=== PATIENT | male | born 1955 | race Caucasian/White ===

== ENCOUNTER 2019-07-28 23:07 | Emergency (ER) | payer BC ==
[2019-07-29] MEDS ORDERED: Ketorolac INJ* 30 MG/ML 1 ML VIAL IM ONE (00:33)
--- NOTE | 2019-07-29 00:39 | ED ---
Lower Extremity - HPI Summary HPI Summary: 63 year old male presents to the ED with a chief complaint of R LE pain secondary to twisting his leg while playing ice hockey at 2230 tonight. The pain radiates down his tibia to his foot. He is able to move his toes and reports full sensation in his foot. History of arthritis. Patient does not smoke tobacco. He occasionally drinks alcohol. patient denies any other pain or injury. Denies loss of consciousness. Has no visual changes nausea vomiting. - History of Current Complaint Chief Complaint: EDExtremityLower Stated Complaint: R ANKLE INJURY PER EMS Time Seen by Provider: 07/28/19 23:42 Hx Obtained From: Patient Mechanism Of Injury: Twisted Onset of Pain: Immediate Onset/Duration: Minutes Severity Initially: Moderate Severity Currently: Moderate Pain Intensity: 4 Pain Scale Used: 0-10 Numeric Timing: Constant Location: Is Discrete @ - LLE Character Of Pain: Sharp Associated Signs And Symptoms: Positive: Swelling, Redness Able to Bear Weight: No - Allergies/Home Medications Allergies/Adverse Reactions: Allergies Allergy/AdvReac Type Severity Reaction Status Date / Time doxycycline Allergy Hives Verified 07/16/18 14:25 PMH/Surg Hx/FS Hx/Imm Hx Endocrine/Hematology History: Denies: Hx Diabetes, Hx Sickle Cell Disease Cardiovascular History: Reports: Hx Hypertension - PRE HYPERTENSION Denies: Hx Pacemaker/ICD, Other Cardiovascular Problems/Disorders Respiratory History: Denies: Hx Asthma GI History: Denies: Other GI Disorders History: Reports: Hx Kidney Stones - IN THE PAST Denies: Hx Renal Disease, Other Problems/Disorders Musculoskeletal History: Reports: Hx Arthritis - LEFT KNEE DUE TO INJURY Sensory History: Reports: Hx Contacts or Glasses - GLASSES Denies: Hx Hearing Aid Opthamlomology History: Reports: Hx Contacts or Glasses - GLASSES Neurological History: Denies: Other Neuro Impairments/Disorders Psychiatric History: Denies: Hx Panic Disorder - Cancer History Hx Chemotherapy: No - Surgical History Surgery Procedure, Year, and Place: ARTHROSCOPY LEFT KNEE - 1995 [facility] – [place]. TONSILS - CHILD. cyst on finger - benign. wisdom teeth Hx Anesthesia Reactions: No Infectious Disease History: No Infectious Disease History: Denies: Hx Clostridium Difficile, Hx Hepatitis, Hx Human Immunodeficiency Virus (HIV), Hx of Known/Suspected MRSA, Hx Shingles, Hx Tuberculosis, Hx Known/ Suspected VRE, Hx Known/Suspected VRSA, History Other Infectious Disease, Traveled Outside the [place] in Last 30 Days - Social History Alcohol Use: Occasionally Alcohol Amount: twice weekly Substance Use Type: Reports: None Smoking Status (MU): Never Smoked Tobacco - Additional Comments History Additional Comments: PMHx: Arthritis Review of Systems - ROS Summary Review of Systems Summary: Home Medications Medication Instructions Recorded Confirmed Type Aspirin [Aspir-81] 81 mg PO DAILY 03/10/13 07/16/18 History Chlorpheniramine Maleate TAB* 12 mg PO DAILY 03/10/13 07/16/18 History [Chlortrimeton TAB*] Losartan Potassium [Cozaar] 50 mg PO DAILY 07/16/18 07/16/18 History Naproxen Sodium [Naproxen 220 mg] 220 mg PO DAILY 07/16/18 07/16/18 History Negative: Fever Positive: Arthralgia - Right ankle pain, Myalgia - LRE All Other Systems Reviewed And Are Negative: Yes Physical Exam - Summary Physical Exam Summary: General: Well-developed, Well-nourished male. No acute distress. HEENT: Normocephalic, Atraumatic. Eyes: Conjuctiva normal, PERRL. Ears: TMs within normal limits. Nares: (-) discharge, (-) erythema. Oropharynx: Clear, mucous membranes moist, (-) exudates. Neck: Soft, FROM, (-) lymphadenopathy, (-) thyromegaly, (-) JVD. Cardiovascular: Normal sinus rhythm, (-) murmur. Lungs: Clear to auscultation bilaterally (-) wheezes, (-) rales, (-) rhonchi. Abdomen: Soft, non-tender, non-distended, (-) organomegaly, normal bowel sounds. Back: (-) CVA tenderness Extremities: Mild swelling and erythema in distal LRE, proximal to ankle. Mild to moderate tenderness in the area. Normal capillary refill, pulses, ROM, strength, and sensation. Skin: Warm, dry, (-) rash. Neuro: Alert and oriented x3, no focal deficits. Psychiatric: Mood normal, affect normal. Triage Information Reviewed: Yes Vital Signs On Initial Exam: Initial Vitals Temp Pulse Resp BP Pulse Ox 97.8 F 84 18 155/84 96 07/28/19 23:10 07/28/19 23:10 07/28/19 23:10 07/28/19 23:10 07/28/19 23:10 Vital Signs Reviewed: Yes Procedures - Sedation Patient Received Moderate/Deep Sedation with Procedure: No - Splinting Right Lower Extremity Location: Right Tibia Hand-Made Type: orthoglass Splint: Posterior Splint Pre-Proc Neuro Vasc Exam: normal Post-Proc Neuro Vasc Exam: normal Splint Applied by Provider: Reina Mendez - Vital Signs Vital Signs Temp Pulse Resp BP Pulse Ox 07/28/19 23:10 97.8 F 84 18 155/84 96 - Laboratory Lab Statement: Any lab studies that have been ordered have been reviewed, and results considered in the medical decision making process. - Radiology Ankle XR Radiology Interpretation Completed By: ED Physician Summary of Radiographic Findings: Ankle XR shows oblique fracture of the right tibia distally with mild displacement. Pending official read. Dr. Mendez reviewed and interpreted this scan. Tibia Fibula XR Radiology Interpretation Completed By: ED Physician Summary of Radiographic Findings: Tibia Fibular XR shows additional proximal fracture on right fibula, oblique, and distal tibia fracture with mild displacement. Dr. Mendez has reviewed and interpreted this report. Lower Extremity Course/Dx - Course Course Of Treatment: 63-year-old male presents by ambulance after injury while playing ice hockey. Patient states he had his foot planted and turned while someone hit him against the boards. He has pain distally in right lower extremity. Also complains of pain in the proximal right lower extremity. He has swelling, ecchymosis, tenderness upon arrival. No significant deformity. X -rays demonstrate normal pulses and capillary refill distally. X-rays demonstrate a proximal fibular fracture as well as lower tibial fracture on the right. Consulted with orthopedic surgeon on-call, Dr. Fleming. Discussed findings. Recommended splint and crutches. Nonweightbearing. Follow up in the morning by calling orthopedics for an appointment. Patient will be seen and definitive treatment be arranged. Patient is in agreement with this plan. Splint is applied. Patient given crutches and teaching. Discharged to home. Advised to rest, ice, elevation. Tylenol or ibuprofen for pain. Follow-up sooner for any worsening symptoms. - Diagnoses Provider Diagnoses: Right tibial fracture, Right fibular fracture Discharge ED - Sign-Out/Discharge Documenting (check all that apply): Patient Departure - discharge home - Discharge Plan Condition: Stable Disposition: HOME Patient Education Materials: Leg Fracture (ED) Referrals: Josh Fleming MD [Medical Doctor] - Additional Instructions: Follow up with Orthopedics tomorrow morning. Return to the Emergency Department if you experience new or worsened symptoms. Feel better! - Billing Disposition and Condition Condition: STABLE Disposition: Home - Attestation Statements Document Initiated by Scribe: Yes Documenting Scribe: Rodolfo Farmer Provider For Whom Celeibtye is Documenting (Include Credential): Reina Mendez MD Scribe Attestation: Rodolfo Lilly, scribed for Reina Mendez MD on 07/29/19 at 0605. Scribe Documentation Reviewed: Yes Provider Attestation: The documentation as recorded by the Rodolfo montero accurately reflects the service I personally performed and the decisions made by , Reina Mendez MD Status of Scribe Document: Viewed
[2019-07-29 02:29] VITALS: BP 138/76
== END 2019-07-29 02:05 | disposition home or self-care (01) ==
LOC: ED 23:07
DX: S82.201A Unspecified fracture of shaft of right tibia, initial encounter for closed fracture (principal); R60.9 Edema, unspecified; I10 Essential (primary) hypertension; Z87.442 Personal history of urinary calculi; Z79.82 Long term (current) use of aspirin; X58.XXXA Exposure to other specified factors, initial encounter; Y93.22 Activity, ice hockey; Y92.9 Unspecified place or not applicable
CPT/HCPCS: 96372; 99283; J1885

== ENCOUNTER → 2019-07-31 10:22 | Day surgery (SDC) | payer BC ==
[~2019-07-31 10:22] MED LIST: Atracurium* 10 MG/ML 10 ML VIAL ONE; Buffered Lidocaine 1% SYRIN* 1 ML/SYRINGE INTRADERM ONE; Bupivacaine 0.25% EPI 200,000* 30 ML SDV ONE; Dexamethasone IV* 4 MG/ML 1 ML (4 MG) IV SLOW PU ONE; Dexamethasone IV* 4 MG/ML 1 ML (4 MG) ONE; DiMENhydriNATE IV* 50 MG/ML VIAL IV PUSH PRN; Famotidine IV* 10 MG/ML 2 ML (20 mg) IV ONE; Famotidine IV* 10 MG/ML 2 ML (20 mg) ONE; HYDROmorphone INJ1* 1 MG/ML SYRINGE IV PRN; Ketorolac INJ* 30 MG/ML 1 ML VIAL ONE; Lactated Ringers 1000 ML Bag* 1,000 ML IV SCH; Levalbuterol HFA INHALER* 1 PUFF MDI ONE; Lidocaine 2% PF * 5 ML VIAL ONE; Midazolam* 1 MG/ML 5 ML VIAL (5 MG) ONE; Naloxone* 0.4 MG/ML 1 ML VIAL IV PRN; Ondansetron INJ* 2 MG/ML VIAL IV PRN; Ondansetron INJ* 2 MG/ML VIAL ONE; Propofol* 10 MG/ML 20 ML BTL ONE; ROPIVACAINE 5 MG/ML 30 ML BTL (0.5%) ONE; Scopolamine 1.5 mg* PATCH TRANSDERM PRN; ceFAZolin 2 GM PREMIX in ORs 2 GM/50 ML BAG ONE; fentaNYL* 50 MCG/ML 2 ML VIAL (100 MCG VIAL) IV PRN; fentaNYL* 50 MCG/ML 5 ML VIAL (250 MCG VIAL) ONE; oxyCODONE/Acetamin 5/325 MG* TAB PO PRN
[2019-07-31 17:47] VITALS: BP 140/85
--- NOTE | 2019-08-02 02:48 | OP ---
OPERATIVE REPORT: DATE OF OPERATION: 07/31/19 DATE OF : 55 SURGEON: Dr. Adalberto Ho. SHOP CLERK: SELENE Brantley A physician city carrier assistant was required for the length of the procedure for assistance with patient positi oning, retraction, instrumentation, and closure. ANESTHESIOLOGIST: Dr. Mccain. ANESTHESIA: General anesthesia, regional anesthesia consisting of popliteal block and adductor canal blocks. PRE-OP DIAGNOSES: 1. Right tibial shaft fracture, displaced, distal, comminuted. 2. Right proximal fibula shaft fracture, displaced. POST-OP DIAGNOSES: 1. Right tibial shaft fracture, displaced, distal, comminuted. 2. Right proximal fibula shaft fracture, displaced. OPERATIVE PROCEDURE: 1. Open reduction and internal fixation right tibial shaft fracture with intramedullary nail. 2. Close treatment right proximal fibula fracture, proximal shaft. ANTIBIOTICS: Ancef 2 g IV. IV FLUIDS: See Anesthesia note. [id number] TIME: 119 minutes. TOURNIQUET TIME: 40 minutes at 300 mmHg, right thigh. Tourniquet was dropped prior to flexible ream ing of the medullary canal. SPECIMEN: None. IMPLANTS: Cardback right T2 tibial nail. Nail was 9 mm x 315 mm. Four screws were placed, each 5 mm wide. The screw proximal was 40 mm. Three screws were placed distally, two of them were 40 mm long and one of them was 47.5 mm long. A plus 15- mm end cap was placed proximally. ESTIMATED BLOOD LOSS: Minimal. COMPLICATIONS: None. INDICATIONS FOR PROCEDURE: The patient is a 63-year-old man, retired, who injured himself 07/28/19 a nd was seen by me in clinic on 07/29/19. X-rays displayed clear right tibial and fibular sha ft fractures with significant displacement requiring surgery. Discussed risks and potential complications of surgery with the patient and he agreed to go forward w [facility] surgery. I had him elevate his right lower leg, which was already in a splint and the patient fo llowed up for surgery on 07/31/19. DESCRIPTION OF PROCEDURE: In the preoperative holding, the patient signed a written consent. Operat alexis extremity was marked in the preoperative holding. Regional nerve blocks performed by Dr. Mccain in preoperative holding. The patient was taken to the operating room, [facility]. Sedated and intubated. Bump, blanket, placed under the right hemipelvis. The right lo wer extremity was prepped and draped. Surgical time-out was performed. Esmarch was applied and the tourniquet was elevated. A radiolucent triangle was placed under the rig ht knee. Skin incision was made from the distal pole of the patella to the proximal aspect of the ti bial tubercle. Dissected down to the peritenon. Split the peritenon in its midline. Retracted it. Split the patellar tendon in its midline. Retracted it. I placed a Beath pin into the proximal tibia. I used C-arm to evaluate its position on both AP and l ateral views. I liked my position and then used an entry reamer. I next placed a ball-tipped guidewire. I bent it at its tip. I placed it down. I performed reducti on maneuver across distal tibial fractures. I did not quite get to the distal growth plate scar. I tried bending the wire, but it would not let me. This told me that I wanted to adjust my entry posit ion a little bit. I was slightly in the lateral aspect of the proximal tibia and tibial mid section and I thought that might be limiting me. I returned to the proximal aspect of the tibia. I replaced that Beath pin and drilled slightly more medial with my entry reamer. I next replaced the ball-tipped guidewire and it moved all the way down the tibia to the physeal scar. I was happy with the reduction and happy with the ball-tipped guidew mayra and position distally. I next used flexible reamers after dropping the tourniquet. I started at 9 mm. I reamed up to 10.5 mm. I had measured the length of the ball-tipped guidewire and shows an appropriate length nail. I place d the nail. The jig was attached proximally. I chose 1 screw proximally because the fracture was so distal and I wanted to minimize the amount of prominence of screw heads underneath the skin. I then took the jig off. C-arm views confirmed excellent position of reduction and hardware. I next used the perfect [place] technique distally to place two locking screws medial to lateral. I d ecided to place an kdbzlffk-cm-smqgoybus screw as well because this was a distal fracture. I made a slightly larger incision anteriorly. I was careful with my dissection to minimize trauma to tissues. I retracted all soft tissues in the lateral direction that were central in the infusion to minimize my going anywhere near the anterior neurovascular bundle. I next used perfect [place] technique to dr lou and then place a screw from the anterior to posterior. Final x-ray views were obtained. Excellent reduction and fixation. Irrigation of all wounds. Irrigation especially about the knee joint. Proximally, I closed the patellar tendon with multiple buried faauzp-or-fnygk stitches using Ethibond 0 suture along with 2 stitches using Vicryl 0 suture. Peritenon was then partially closed with a run jaqueline stitch using Vicryl 2-0 suture. Subcutaneous tissue in the proximal incision and then some of th e distal incisions were closed with buried simple stitches using Vicryl 2-0 suture. Skin was all rena sed with whit. Xeroform, 4x4's, ABDs, sterile Webril. A short leg splint was then placed using p emil. Posterior slab followed by sugar tong slab. Overwrapped in an Chaz bandage. The patient was awakened and extubated and brought to the PACU. DISPOSITION: The patient was discharged home after the procedure as his pain was sufficiently contro lled. I spoke to the patient's family about the very rare, but serious complication of these fractur es called compartment syndrome and to look out for any symptoms. The patient's pain was to be contro lled with Percocet as needed for pain control. DVT prophylaxis with aspirin b.i.d. for 2 weeks. Ant ibiotics short course for infection prophylaxis. Upon request, ondansetron was provided to minimize nausea induced by Percocet. The patient was to remain in the splint and to be nonweightbearing with crutches or other assist devices. The patient was to see me in clinic approximately 14 days postoper atively [id number]/[facility] #: [id number]
== END | disposition home or self-care (01) ==
LOC: OR 10:22
PROVIDERS: ATTEND Orthopaedic Surgery
DX: S82.291A Other fracture of shaft of right tibia, initial encounter for closed fracture (principal); S82.491A Other fracture of shaft of right fibula, initial encounter for closed fracture; V00.211A Fall from ice-skates, initial encounter; Y93.69 Activity, other involving other sports and athletics played as a team or group; Y92.330 Ice skating rink (indoor) (outdoor) as the place of occurrence of the external cause; G89.18 Other acute postprocedural pain; I10 Essential (primary) hypertension; M19.90 Unspecified osteoarthritis, unspecified site
CPT/HCPCS: 76000; A9270-GY; C1713; C1776; J0690; J1100; J1885; J2250; J2405; J2704; J2795; J3010